=== PATIENT | male | born 1985 | race African-American/Black ===

== ENCOUNTER 2023-04-01 13:26 | Emergency (ER) | payer MEDICAID, OTHER ==
[~2023-04-01] VITALS: Ht 175.3 cm; Wt 95.0 kg
[2023-04-01 13:36] VITALS: O2SAT 98
[2023-04-01] MEDS ORDERED: ACETAMINOPHEN 325MG TABLET PO ONE (14:00)
[2023-04-01] MEDS ORDERED: LIDOCAINE 5% PATCH TOP SCH (14:00)
[2023-04-01] MEDS ORDERED: KETOROLAC 60MG/2ML VIAL IM ONE (14:00)
[2023-04-01 15:04] VITALS: TEMP 98.6
[2023-04-01] MEDS ORDERED: LIDO700A30 TP (15:43)
[2023-04-01] MEDS ORDERED: METH-653 MT (15:43)
[2023-04-01 15:56] VITALS: BP 142/99; PULSE 98; RESP 17
== END 2023-04-01 15:59 | disposition home or self-care (01) ==
LOC: ER 13:26
DX: M54.32 Sciatica, left side (principal)
CPT/HCPCS: 93971; 96372; 99285; J1885; Z7610